=== PATIENT | male | born 1950 ===

== ENCOUNTER 2018-10-17 09:12 | Emergency (ER) | payer MEDICARE, BC ==
[2018-10-17 09:18] VITALS: BP 146/74
--- NOTE | 2018-10-17 11:13 | UC ---
Cardiac HPI - HPI Summary HPI Summary: WOKE UP YESTERDAY MORNING WITH RIGHT ANTERIOR CHEST PAIN. NO RADIATION TO THE ARM OR NECK. NO NAUSEA, SHORTNESS OF BREATH, SWEATS. PATIENT WAS RAKING LEAVES PRIOR TO ONSET OF SYMPTOMS AND FEELS HIS PAIN IS MORE IN LINE WITH MUSCLE STRAIN THAN ANYTHING CARDIAC. TAKE 600 MG IBUPROFEN LAST NIGHT AND SLEPT THROUGH THE NIGHT. PAIN IS WORSE WITH DEEP BREATHS, MOVEMENT AND COUGHING. HAS AN APPOINTMENT WITH A NEW PCP IN 12 DAYS. - History of Current Complaint Chief Complaint: EDAbdPain Stated Complaint: R SHOULDER PAIN Time Seen by Provider: 10/17/18 09:34 Hx Obtained From: Patient Onset/Duration: Gradual Onset, Lasting Days, Still Present Initial Severity: Moderate Current Severity: Moderate Pain Intensity: 5 Chest Pain Location: Right Anterior Character: Sharp/Stabbing Aggravating Factor(s): Movement, Deep Breaths Alleviating Factor(s): Rest Associated Signs & Symptoms: Positive: Chest Pain. Negative: Anxiety, Dizziness , SOB, Diaphoresis, Nausea/Vomiting, Cough - Allergy/Home Medications Allergies/Adverse Reactions: Allergies Allergy/AdvReac Type Severity Reaction Status Date / Time No Known Allergies Allergy Verified 10/17/18 09:20 Home Medications: Home Medications Allopurinol TAB* [Zyloprim 300 MG TAB*] 300 mg PO DAILY 10/17/18 [History Confirmed 10/17/18] Lisinopril 20 mg PO DAILY 10/17/18 [History Confirmed 10/17/18] PMH/Surg Hx/FS Hx/Imm Hx Endocrine History: Dyslipidemia Cardiovascular History: Hypertension Respiratory History: Asthma - Surgical History Surgical History: Yes Surgery Procedure, Year, and Place: achilles tendon rupture - Family History Known Family History: Positive: Cardiac Disease - Social History Alcohol Use: Occasionally Substance Use Type: None Smoking Status (MU): Never Smoked Tobacco Review of Systems All Other Systems Reviewed And Are Negative: Yes Constitutional: Positive: Negative Skin: Positive: Negative Respiratory: Positive: Negative Cardiovascular: Positive: Chest Pain Gastrointestinal: Positive: Negative Musculoskeletal: Positive: Myalgia Physical Exam Triage Information Reviewed: Yes Appearance: Well-Appearing, No Pain Distress, Well-Nourished Vital Signs: Initial Vital Signs Temp 98 F 10/17/18 09:15 Pulse 59 10/17/18 09:15 Resp 16 10/17/18 09:15 BP 146/74 10/17/18 09:15 Pulse Ox 100 10/17/18 09:15 Vital Signs Reviewed: Yes Eyes: Positive: Conjunctiva Clear ENT: Positive: Hearing grossly normal Neck: Positive: Supple, Nontender, No Lymphadenopathy Respiratory Exam: Normal Cardiovascular Exam: Normal Abdomen Description: Positive: Soft Musculoskeletal: Positive: ROM Intact, No Edema, Other: - NO TENDERNESS OVER BONY PROMINENCES OR SOFT TISSUES OF RIGHT SHOULDER Neurological: Positive: Alert Psychological: Positive: Age Appropriate Behavior Skin: Negative: Rashes - Assessment/Plan Course Of Treatment: PATIENT'S SYMPTOMS MORE CONSISTENT WITH MUSCLE STRAIN THAN WITH CARDIAC ETIOLOGY. OFFERED EKG TODAY WHICH PATIENT DECLINES. DISCUSSED TRANSFER TO THE ER FOR FULL CARDIAC WORKUP WHICH PATIENT ALSO DECLINES. PT HAS ATYPICAL SYMPTOMS AND PCP FOLLOW-UP IN LESS THAN 2 WEEKS. WILL TREAT MUSCLE STRAIN AND HAVE ADVISED PT TO GO TO ER WITHOUT FAIL IF HE DEVELOPS WORSENING PAIN, SOB , NAUSEA, SWEATS, FEVER OR ANY OTHER CONCERNING SYMPTOMS. - Clinical Impression Provider Diagnosis: Muscle strain of anterior chest wall Discharge - Sign-Out/Discharge Documenting (check all that apply): Patient Departure All imaging exams completed and their final reports reviewed: No Studies - Discharge Plan Condition: Stable Disposition: HOME Prescriptions: Cyclobenzaprine TAB* [Flexeril TAB*] 10 mg PO BID PRN #30 tab PRN Reason: Pain Patient Education Materials: Muscle Strain (ED) Referrals: Barrie Guerrero MD [Primary Care Provider] - If Needed Additional Instructions: YOUR SYMPTOMS SHOULD IMPROVE SIGNIFICANTLY OVER THE NEXT 1-2 WEEKS. IF YOU DO NOT IMPROVE EXPECTED FOLLOW-UP WITH YOUR PCP. YOU MAY BENEFIT FROM IMAGING AT THAT TIME. REST. OTC IBUPROFEN OR ALEVE NEEDED FOR DISCOMFORT. TAKE MUSCLE RELAXER BEFORE BED. BE SURE TO GO THROUGH SLOW RANGE OF MOTION AND STRETCHING EXERCISES DAILY YOU ARE ABLE TO PREVENT STIFFENING UP AND MAKING THE DISCOMFORT WORSE. GO TO ED WITHOUT FAIL IF YOU DEVELOP WORSENING CHEST PAIN, SHORTNESS OF BREATH, NAUSEA, SWEATS, DIZZINESS OR ANY OTHER CONCERNING SYMPTOMS. CALL THE NUMBER BELOW FOR ASSISTANCE IN ESTABLISHING WITH A PCP An additional resource available to assist in finding the appropriate physician for your health care needs is [facility] ([facility]). You may contact them by calling [phone]. - Billing Disposition and Condition Condition: STABLE Disposition: Home
== END 2018-10-17 10:08 | disposition home or self-care (01) ==
LOC: UCEAST 09:12
DX: S29.011A Strain of muscle and tendon of front wall of thorax, initial encounter (principal); X50.3XXA Overexertion from repetitive movements, initial encounter; Y93.H1 Activity, digging, shoveling and raking; Y92.096 Garden or yard of other non-institutional residence as the place of occurrence of the external cause; E78.5 Hyperlipidemia, unspecified; I10 Essential (primary) hypertension; J45.909 Unspecified asthma, uncomplicated
CPT/HCPCS: 99212; G0463